=== PATIENT | male | born 1960 | race Caucasian/White ===

== ENCOUNTER 2021-11-08 12:23 | Outpatient (CLI) | payer OTHER, SELFPAY | END 2021-11-08 12:24 | disposition home or self-care (01) | PROVIDERS: PCP Family Medicine; Visit Provider Internal Medicine | DX: Z12.11 Encounter for screening for malignant neoplasm of colon (principal) | CPT/HCPCS: 45378; J2250; J3010 ==

== ENCOUNTER 2021-11-12 06:11 | Day surgery (SDC) | payer OTHER, SELFPAY ==
[2021-11-12] VITALS (13 sets, daily range): BP systolic 106–134; BP diastolic 75–94; PULSE 61–80; RESP 14–16; TEMP 36.1–36.5; O2SAT 92–98; BMI 32.3
[2021-11-12] MEDS: LACTATED RINGERS 1000 ML 1,000 ML 100 ML IV (06:30)
[2021-11-12] MEDS: SODIUM CHLORIDE 0.9 % (FLUSH) 10 ML SYRINGE IVF (06:59)
[2021-11-12] MEDS: CEFAZOLIN 2 GM INJ IVP (07:40)
[2021-11-12] MEDS: BUPIVACAINE 0.25% 30 ML INJECTION (08:00)
--- NOTE | 2021-11-12 09:36 | PM.GSPRC ---
Operative Note Date of procedure: 11/12/21 Type of Procedure: 1. Laparoscopic right inguinal hernia repair 2. Open umbilical hernia repair with placement of mesh Procedure Description: After discussing the risks and benefits of the procedure, the patient signed informed consent.? The operative site was marked and the patient was brought to the operating room and placed on the operating table in supine position.? Care was taken to pad the patient's pressure points.?? The patient was then intubated by anesthesia.?? The operative site was then prepped and draped in the usual sterile fashion.? A time-out was then performed. A curvilinear incision was made below the umbilicus. Dissection was carried down to subcutaneous tissue until the anterior rectus fascia was encountered. This was incised off the midline. The rectus muscles were then retracted exposing the posterior fascia. A space maker port with a dissecting balloon was then introduced. The preperitoneal space was inflated under direct vision. The balloon was then removed and the preperitoneal space insufflated. A 0 mm 30 degree scope was then advanced and the area was surveyed for bleeding. Dissection began on the right side. Kip's ligament and the pubic bone was exposed medially. Following this dissection was carried out laterally. A direct defect and small indirect defect was noted. The sac was dissected free from the cord structures and off of the anterior abdominal wall over the area of direct defect using a combination of sharp and blunt dissection. Once the sac was completely reduced, the cord structures were dissected circumfrentially and a piece of Parietex mesh for the appropriate side was placed into the abdomen. This was positioned around the cord structures. A Tacker was used to attach the mesh medially at Kip's ligament. Once this was completed the sac was placed on top of the mesh and the preperitoneal space desufflated under direct vision. The ports were removed. The fascia from the infraumbilical port was closed with 0 Vicryl. Using the previously made curvilinear incision, attention was turned to the umbilical hernia.. Dissection was carried down into the subcutaneous tissue using cautery. The hernia sac was encountered and care was taken to not enter it. Dissection was taken down to the fascia, and the umbilical stock was carefully dissected off of the hernia sac. Once the hernia sac was dissected out circumferentially, it was reduced. The fascial edges were then cleared circumferentially. The hernia was 4 cm in size and so the decision was made to use a piece of mesh. A preperitoneal pocket was created using a combination of blunt dissection and cautery. Hemostasis appeared adequate. Once the posterior fascia was clear, a piece of large Ventralex ST hernia mesh was placed in the preperitoneal space with care to ensure that it laid flat. This was secured into place using 2 0 PDS interrupted sutures. The tails were then trimmed and the fascial opening was closed with a running 0 Vicryl. Local anesthetic was injected into the fascia, skin and subcutaneous tissues. The umbilicus was reapproximated to the fascia. The skin was then closed with running absorbable suture. A sterile dressing was then applied. After sterile dressings were applied.. The scrotum was examined to ensure that both testicles were down. Instrument sponge and needle counts were correct at the end of the case. ? ? The patient tolerated the procedure well. Findings: Large direct defect, small indirect defect on the right side. Large umbilical hernia. Anesthesia: GETA Surgeon: Theresa Mendez MD Estimated blood loss (mL): 5 Condition: stable Disposition: same day
--- NOTE | 2021-11-12 09:53 | W.ANESCHARGE ---
Anesthesia Charges Start Date/Time Anesthesia Start Date: 11/12/21 Anesthesia Start Time: 07:28 Stop Date/Time Anesthesia Stop Date: 11/12/21 Anesthesia Stop Time: 09:50 Summary Emergency: No
[2021-11-12] MEDS: fentaNYL 100 MCG/2 ML inj 50 MCG IVP ×2 (10:12→10:17)
--- NOTE | 2021-11-12 10:43 | W.ANESCHARGE ---
Anesthesia Charges Start Date/Time Anesthesia Start Date: 11/12/21 Anesthesia Start Time: 07:28 Stop Date/Time Anesthesia Stop Date: 11/12/21 Anesthesia Stop Time: 09:50 Summary Emergency: No
[2021-11-12] MEDS: OXYCODONE 5 MG TABLET PO (10:48)
--- NOTE | 2021-11-15 11:44 | SUR.PREOP ---
END TIME/COMPLETION OF PREOPERATIVE CHARTING DONE BY THIS NURSE. TIME BASED ON INTO INTRAOPERATIVE PHASE AND COMPLETION OF CHARTING IN PREOP PHASE.
== END 2021-11-12 11:37 | disposition home or self-care (01) ==
PROVIDERS: PCP Family Medicine; Visit Provider Surgery
PROC: (CPT 49650; principal; 2021-11-12 07:30)
DX: K40.90 Unilateral inguinal hernia, without obstruction or gangrene, not specified as recurrent (principal); K42.9 Umbilical hernia without obstruction or gangrene
CPT/HCPCS: 49585; 49650; 830; 860; A9270; C1781; J0690; J1170; J2250; J2405; J2704; J3010; J3490; J7120